=== PATIENT | female | born 1995 | race Hispanic/Latino ===

== ENCOUNTER 2024-03-14 19:56 | Emergency (ER) | payer SELFPAY ==
--- NOTE | 2024-03-14 21:50 | RAD REPORT ---
EXAM DESCRIPTION: Margarito Quiroz (2 Views)03/14/2024 9:44 pm CLINICAL HISTORY: Chest pain COMPARISON: None FINDINGS: The lungs appear clear of acute infiltrate. The heart is normal size IMPRESSION: No acute abnormalities displayed
[2024-03-14 22:06] LABS: SARS-CoV-2 Antigen CONTROL BLUE LINE VIS/BG OK
[2024-03-14 22:06] LABS: Specific Gravity 1.021 (1.005-1.030); Sqamous Epithelial <5 /HPF (None Seen); Urine Bacteria None Seen /HPF (<20); Urine Bilirubin NEGATIVE (Negative); Urine Blood Trace (Negative); Urine Clarity Turbid (Clear); Urine Color Light-Yellow (Yellow); Urine Crystals Unidentified Few /HPF (None Seen); Urine Culture Reflex Order NOT NEEDED; Urine Glucose NEGATIVE (Negative); Urine Ketones NEGATIVE (Negative); Urine Micro Reflex YN NO BILL MICROSCOPIC; Urine Mucus Slight /HPF (None Seen); Urine Nitrite NEGATIVE (Negative); Urine Protein NEGATIVE (Negative); Urine RBC <5 /HPF (None Seen); Urine Urobilinogen Normal (Normal); Urine WBC <5 /HPF (<5); Urine pH 5.5 (5.0-7.0)
[2024-03-14 22:07] LABS: SARS-CoV-2 Antigen Rapid Res Negative (Negative)
[2024-03-14] MEDS ORDERED: IBUPROFEN 400 MG TAB ONE (22:08)
--- NOTE | 2024-03-14 22:52 | EDPHYS ---
Physician Documentation [facility] Name: Eduarda Celaya Age: 28 yrs Sex: Female : 1995 Arrival Date: 03/14/2024 Time: 19:56 Bed 10 Private MD: ED Physician Oneil Clement HPI: 03/14 21:00 This 28 yrs old Female presents to ER via Ambulatory with complaints of Flu cp Symptoms. 21:00 The patient or guardian reports fever, chills, body aches, dizziness that started today.cp 21:00 Associated signs and symptoms: Pertinent positives: sore throat, Pertinent negatives: cp diarrhea, vomiting. Severity of symptoms: in the emergency department the symptoms are unchanged despite home interventions. Historical: - Allergies: 20:36 No Known Allergies; tl4 - Home Meds: 20:36 None [Active]; tl4 - PMHx: 20:36 None; tl4 - Immunization history:: Adult Immunizations unknown. - Infectious Disease History:: Denies. - Social history:: Smoking status: Patient denies any tobacco usage or history of. ROS: 21:05 Constitutional: Positive for body aches, chills, fever, Negative for poor PO intake, cp 21:05 Eyes: Negative for injury, pain, redness, and discharge, cp 21:05 ENT: Positive for sore throat, 21:05 Respiratory: Positive for cough, Negative for shortness of breath, wheezing, 21:05 Abdomen/GI: Negative for abdominal pain, vomiting, diarrhea, constipation, 21:05 Skin: Negative for cellulitis, rash, 21:05 Neuro: Positive for dizziness, headache, Negative for altered mental status, weakness, 21:05 All other systems are negative, Exam: 21:10 Constitutional: The patient appears in no acute distress, alert, awake, non-toxic, well cp developed, well nourished, 21:10 Head/Face: Normocephalic, atraumatic. cp 21:10 Eyes: Periorbital structures: appear normal, Conjunctiva: normal, no exudate, no injection, Sclera: no appreciated abnormality, Lids and lashes: appear normal, bilaterally, 21:10 ENT: External ear(s): are unremarkable, Ear canal(s): are normal, clear, TM's: dullness, bilaterally, Nose: is normal, Mouth: Lips: moist, Oral mucosa: pink and intact, moist, Posterior pharynx: Airway: no evidence of obstruction, patent, Tonsils: no enlargement, no exudate, erythema, that is mild, exudate, is not appreciated, 21:10 Neck: ROM/movement: Meningeal signs: are not present, nuchal rigidity, is not appreciated, 21:10 Chest/axilla: Inspection: normal, 21:10 Cardiovascular: Rate: tachycardic, 21:10 Respiratory: the patient does not display signs of respiratory distress, Respirations: normal, no use of accessory muscles, no retractions, labored breathing, is not present, Breath sounds: are clear throughout, no decreased breath sounds, no stridor, no wheezing, 21:10 Abdomen/GI: Inspection: abdomen appears normal, Palpation: abdomen is soft and non-tender, in all quadrants, 21:10 Back: CVA tenderness, is absent, Vital Signs: 20:24 BP 106 / 64; Pulse 120; Resp 18; Temp 100.4; Pulse Ox 100% on R/A; Weight 88.45 kg; tl4 Height 5 ft. 0 in. ; Pain 8/10; 22:46 BP 105 / 67; Pulse 98; Temp 100.5; Pulse Ox 99% ; kmf 20:24 Body Mass Index 37.78 (88.45 kg, 153 cm) tl4 20:24 Pain Scale: Adult tl4 MDM: 20:22 Patient medically screened. sp4 22:50 Data reviewed: vital signs, nurses notes, lab test result(s), radiologic studies, plain cp films, and as a result, I will discharge patient. 22:50 Differential diagnosis: bronchitis, flu, URI. I considered the following discharge cp prescriptions or medication management in the emergency department Medications were administered in the Emergency Department. See MAR. Counseling: I had a detailed discussion with the patient and/or guardian regarding the historical points, exam findings, and any diagnostic results supporting the discharge/admit diagnosis, lab results, radiology results, to return to the emergency department if symptoms worsen or persist or if there are any questions or concerns that arise at home. Response to treatment: the patient's symptoms have mildly improved after treatment, and as a result, I will discharge patient. 03/14 20:49 Order name: Influenza Screen (a \T\ B) cp 03/14 20:49 Order name: Urinalysis W/Microscopic; Complete Time: 22:07 cp 03/14 22:07 Interpretation: Normal except: [facility] Turbid; UBLD Trace. cp 03/14 20:49 Order name: Test, Urine; Complete Time: 22:07 cp 03/14 20:49 Order name: SARS RAPID cp 03/14 20:49 Order name: XRAY Chest Pa And Lat (2 Views); Complete Time: 22:07 cp 03/14 22:07 Order name: Vital Signs; Complete Time: 22:55 cp 03/14 22:45 Order name: Vital Signs; Complete Time: 22:55 cp Administered Medications: 22:12 Drug: Ibuprofen PO 800 mg PO once; may give if not Route: PO; ss 23:08 Follow up: Response: No adverse reaction ss Disposition Summary: 03/14/24 22:51 Discharge Ordered Notes: Location: Home cp Problem: new cp Symptoms: have improved cp Condition: Stable cp Diagnosis - Viral infection, unspecified cp Followup: cp - With: Private Physician - When: 2 - 3 days - Reason: Worsening of condition Discharge Instructions: - Discharge Summary Sheet cp - Viral Illness, Adult cp Forms: - Medication Reconciliation Form cp - Antibiotic Education cp - Prescription Opioid Use cp - Patient Portal Instructions cp - Leadership Thank You Letter cp Prescriptions: - Ibuprofen 800 mg Oral Tablet - take 1 tablet ORAL route every 8 hours As needed take with food; 30 tablet; cp Refills: 0, Product Selection Permitted Signatures: Dispatcher [employer] EDLA Jennifer Barron RN RN ss Adria Arnold PA PA cp Oneil Clement MD MD sp4 LogEsteban leiva RN RN tl4 Corrections: (The following items were deleted from the chart) 03/15 23:00 03/14 21:00 Associated signs and symptoms: Pertinent positives: sore throat, Pertinent cp negatives: cough, cp 03/15 23:00 03/14 21:05 Respiratory: Negative for cough, shortness of breath, wheezing, cp cp
--- NOTE | 2024-03-14 22:52 | ER ---
Nurse's Notes [facility] Name: Eduarda Celaya Age: 28 yrs Sex: Female : 1995 Arrival Date: 03/14/2024 Time: 19:56 Bed 10 Private MD: Diagnosis: Viral infection, unspecified Presentation: 03/14 20:24 Chief complaint: Patient states: Via spanish medical interpreter, pt c/o fever, chills, body tl4 aches and dizziness all day today. No relief with tylenol x 1 dose. Coronavirus screen: chills, fever, muscle pain. Ebola Screen: No symptoms or risks identified at this time. Initial Sepsis Screen: Does the patient meet any 2 criteria? No. Patient's initial sepsis screen is negative. Does the patient have a suspected source of infection? No. Patient's initial sepsis screen is negative. Risk Assessment: Do you want to hurt yourself or someone else? Patient reports no desire to harm self or others. Onset of symptoms was March 14, 2024. 20:24 Method Of Arrival: Ambulatory tl4 20:24 Acuity: [place] 3 tl4 Triage Assessment: 20:36 General: Appears ill, Behavior is cooperative. Pain: Complains of pain in head and tl4 generalized body aches. EENT: No signs and/or symptoms were reported regarding the EENT system. Neuro: Level of Consciousness is awake, alert, obeys commands, Oriented to person, place, time, situation, Reports dizziness. Neuro: Reports headache. Cardiovascular: Capillary refill < 3 seconds Patient's skin is warm and dry. Respiratory: Airway is patent Respiratory effort is even, unlabored, Respiratory pattern is regular, symmetrical. GI: No signs and/or symptoms were reported involving the gastrointestinal system. : No signs and/or symptoms were reported regarding the genitourinary system. Derm: No signs and/or symptoms reported regarding the dermatologic system. Musculoskeletal: No signs and/or symptoms reported regarding the musculoskeletal system. Historical: - Allergies: 20:36 No Known Allergies; tl4 - Home Meds: 20:36 None [Active]; tl4 - PMHx: 20:36 None; tl4 - Immunization history:: Adult Immunizations unknown. - Infectious Disease History:: Denies. - Social history:: Smoking status: Patient denies any tobacco usage or history of. Screenin:07 [facility] ED Fall Risk Assessment (Adult) History of falling in the last 3 months, ss including since admission No falls in past 3 months (0 pts) Confusion or Disorientation No (0 pts) Intoxicated or Sedated No (0 pts) Impaired Gait No (0 pts) Mobility Assist Device Used No (0 pt) Altered Elimination No (0 pt) Score/Fall Risk Level 0 - 2 = Low Risk Oriented to surroundings, Maintained a safe environment. Abuse screen: Denies threats or abuse. Denies injuries from another. Nutritional screening: No deficits noted. Tuberculosis screening: Never had TB. Assessment: 21:25 General: Appears in no apparent distress. Behavior is calm, cooperative, Reports fever ss for feeling ill for. Pain: Complains of pain in headache, body aches Pain currently is 8 out of 10 on a pain scale. Neuro: Level of Consciousness is awake, alert, obeys commands, Oriented to person, place, time, situation. Respiratory: Respiratory effort is even, unlabored, Respiratory pattern is regular, symmetrical. Derm: Skin is pink, warm \T\ dry. normal. Musculoskeletal: Circulation, motion, and sensation intact. Range of motion: intact in all extremities. 23:07 Reassessment: Patient appears in no apparent distress at this time. Patient and/or ss family updated on plan of care and expected duration. Pain level reassessed. Patient is alert, oriented x 3, equal unlabored respirations, skin warm/dry/pink. Patient states feeling better. Vital Signs: 20:24 BP 106 / 64; Pulse 120; Resp 18; Temp 100.4; Pulse Ox 100% on R/A; Weight 88.45 kg; tl4 Height 5 ft. 0 in. ; Pain 8/10; 22:46 BP 105 / 67; Pulse 98; Temp 100.5; Pulse Ox 99% ; kmf 20:24 Body Mass Index 37.78 (88.45 kg, 153 cm) tl4 20:24 Pain Scale: Adult tl4 ED Course: 20:01 Patient arrived in ED. mr 20:07 Adria Arnold PA is PHCP. cp 20:07 Oneil Clement MD is Attending Physician. cp 20:36 Triage completed. tl4 20:38 Arm band placed on right wrist. tl4 21:26 Barron, Jennifer, RN is Primary Nurse. ss 21:33 Influenza Screen (a \T\ B) Sent. ss 21:33 SARS RAPID Sent. ss 21:44 XRAY Chest Pa And Lat (2 Views) In Process Unspecified. EDMS 23:07 Patient has correct armband on for positive identification. ss 23:07 No provider procedures requiring assistance completed. Patient did not have IV access ss during this emergency room visit. Administered Medications: 22:12 Drug: Ibuprofen PO 800 mg PO once; may give if not Route: PO; ss 23:08 Follow up: Response: No adverse reaction ss Medication: 23:07 VIS not applicable for this client. ss Outcome: 22:51 Discharge ordered by MD. cp 23:07 Discharged to home ambulatory, with family, 23:07 Condition: good 23:07 Discharge instructions given to patient, family, Instructed on discharge instructions, follow up and referral plans. Demonstrated understanding of instructions, follow-up care, 23:08 Patient left the ED. ss Signatures: Dispatcher [employer] EDNY Marisol Hampton, Reg Reg mr Jennifer Barron, RN RN Adria Arnold PA PA [facility] Esteban Almaguer RN RN tl4
[2024-03-14 23:15] VITALS: BP 105/67; TEMP 100.5; O2SAT 99
== END 2024-03-14 23:08 | disposition home or self-care (01) ==
LOC: ER 19:56
DX: B34.9 Viral infection, unspecified (principal); Z11.52 Encounter for screening for COVID-19
CPT/HCPCS: 36415; 71046; 81001; 81025; 87804; 87811